=== PATIENT | female | born 1950 | race Caucasian/White ===

== ENCOUNTER → 2017-07-16 | Outpatient (CLI) | payer OTHER ==
[~2017-07-16] MED LIST: 8 HOUR C500 MG PO; ACCUNEB SO1.25 MG/1; ACETAMINOPHEN650 M5 PO; ADVAIR HFA115 MCG/21 INH; ALPRAZOLAM 0.0.25 M1 PO; ASPIRIN EC81 M1 PO; ASPIRIN81 M2 PO; AUGMENTIN 875875 MG PO; BACTROBAN CREAM30 G1 TOP; BACTROBAN NASAL1 GM NASAL; BENADRYL25 MG PO; CALCIUM + D SO1 EACH PO; CALTRATE-600 W1 EACH PO; CLARITIN10 MG PO; COLACE100 MG PO; DULERA 100 MCG/13 GM IH; DUONEB 2.5-0.5 M3 ML INH; HYDROCHLOROTHIA25 M2 PO; HYDROCODON-ACE1 EAC7 PO; HYDROCODONE-AP1 EAC6 PO; HYDROXYZINE HCL25 M1 PO; INVANZ1 GM IV; IRON325 PO; LIPITOR 20 MG T20 M1 PO; LOPRESSOR25 PO; LORTAB 5-500 T1 EAC1 PO; MONTELUKAST SOD10 MG PO; MULTI VITAMIN1 EACH PO; MULTIVITAMINS1 EAC7 PO; NEURONTIN 300300 M1 PO; NITROGLYCERIN0.4 MG SL; NITROSTAT0.4 MG SUBLING; OMEGA-31000 M1 PO; OMEPRAZOLE 20 M20 M1 PO; OMEPRAZOLE20 M2 PO; PERCOCET 5-3251 EACH PO; PLAVIX 75 MG TA75 M1 PO; PROAIR HFA8.5 GM IH; PROTONIX 20 MG20 M1 PO; SIMETHICON CHEW80 M1 PO; SIMVASTATIN40 MG PO; SINGULAIR 10 MG10 M1 PO; VITAMIN B-1100 M1 PO; VITAMIN E400 UNIT PO; VITAMINC500 PO; ZOLOFT 50 MG TA50 M1 PO; ZYRTEC10 M2 PO; [UNRECOGNIZED DRUG - OTHER] PO
== END ==
LOC: RAD 11:33
DX: M17.11 Unilateral primary osteoarthritis, right knee (principal)

== ENCOUNTER → 2018-10-18 | Outpatient (CLI) | payer OTHER | LOC: RAD 08:44 | DX: Z12.31 Encounter for screening mammogram for malignant neoplasm of breast (principal) ==

== ENCOUNTER → 2019-08-22 | Outpatient (CLI) | payer OTHER | LOC: SJCVC 13:14 | DX: I45.10 Unspecified right bundle-branch block (principal); R94.31 Abnormal electrocardiogram [ECG] [EKG]; I25.810 Atherosclerosis of coronary artery bypass graft(s) without angina pectoris; I10 Essential (primary) hypertension; I65.23 Occlusion and stenosis of bilateral carotid arteries; I73.9 Peripheral vascular disease, unspecified; E78.5 Hyperlipidemia, unspecified; G47.33 Obstructive sleep apnea (adult) (pediatric); Z95.1 Presence of aortocoronary bypass graft; Z99.89 Dependence on other enabling machines and devices; Z79.899 Other long term (current) drug therapy; Z82.49 Family history of ischemic heart disease and other diseases of the circulatory system; Z87.891 Personal history of nicotine dependence ==

== ENCOUNTER → 2020-02-02 | Outpatient (CLI) | payer OTHER | LOC: RAD 12:07 | PROVIDERS: ATTEND Internal Medicine Pulmonary Disease | DX: J84.9 Interstitial pulmonary disease, unspecified (principal) ==

== ENCOUNTER → 2020-02-25 | Outpatient (CLI) | payer OTHER | LOC: SJCVCIMAG 09:10 | PROVIDERS: ATTEND Internal Medicine | DX: I65.23 Occlusion and stenosis of bilateral carotid arteries (principal); R94.31 Abnormal electrocardiogram [ECG] [EKG]; I45.10 Unspecified right bundle-branch block; I25.10 Atherosclerotic heart disease of native coronary artery without angina pectoris; I10 Essential (primary) hypertension; E78.5 Hyperlipidemia, unspecified; G47.33 Obstructive sleep apnea (adult) (pediatric); I73.9 Peripheral vascular disease, unspecified; J84.9 Interstitial pulmonary disease, unspecified; Z99.89 Dependence on other enabling machines and devices; Z95.1 Presence of aortocoronary bypass graft; Z79.899 Other long term (current) drug therapy; Z87.891 Personal history of nicotine dependence ==

== ENCOUNTER → 2020-09-15 | Outpatient (CLI) | payer OTHER | LOC: SJCVC 09:41 | PROVIDERS: ATTEND Internal Medicine | DX: R94.31 Abnormal electrocardiogram [ECG] [EKG] (principal); I45.10 Unspecified right bundle-branch block; I25.10 Atherosclerotic heart disease of native coronary artery without angina pectoris; I10 Essential (primary) hypertension; E78.5 Hyperlipidemia, unspecified; I65.23 Occlusion and stenosis of bilateral carotid arteries; G47.33 Obstructive sleep apnea (adult) (pediatric); I73.9 Peripheral vascular disease, unspecified; J84.9 Interstitial pulmonary disease, unspecified; J44.9 Chronic obstructive pulmonary disease, unspecified; K21.9 Gastro-esophageal reflux disease without esophagitis; Z95.1 Presence of aortocoronary bypass graft; Z99.89 Dependence on other enabling machines and devices; Z90.710 Acquired absence of both cervix and uterus; Z88.8 Allergy status to other drugs, medicaments and biological substances; Z79.82 Long term (current) use of aspirin; Z79.899 Other long term (current) drug therapy; Z87.891 Personal history of nicotine dependence; Z82.49 Family history of ischemic heart disease and other diseases of the circulatory system ==

== ENCOUNTER → 2021-02-01 | Outpatient (CLI) | payer OTHER | LOC: RAD 12:02 | PROVIDERS: ATTEND Pediatrics | DX: J84.9 Interstitial pulmonary disease, unspecified (principal); R06.02 Shortness of breath ==

== ENCOUNTER → 2021-03-28 | Outpatient (CLI) | payer OTHER | END | disposition home or self-care (01) | LOC: SJCVCIMAG 12:43 | PROVIDERS: ATTEND Internal Medicine | DX: I25.10 Atherosclerotic heart disease of native coronary artery without angina pectoris (principal); I10 Essential (primary) hypertension; I65.23 Occlusion and stenosis of bilateral carotid arteries; G47.33 Obstructive sleep apnea (adult) (pediatric); I73.9 Peripheral vascular disease, unspecified; J84.9 Interstitial pulmonary disease, unspecified; I45.10 Unspecified right bundle-branch block; Z99.89 Dependence on other enabling machines and devices; Z95.1 Presence of aortocoronary bypass graft; Z79.82 Long term (current) use of aspirin; Z79.899 Other long term (current) drug therapy; Z98.890 Other specified postprocedural states; Z87.891 Personal history of nicotine dependence; Z88.8 Allergy status to other drugs, medicaments and biological substances; Z90.710 Acquired absence of both cervix and uterus ==